=== PATIENT | male | born 1995 | race African-American/Black ===

== ENCOUNTER 2022-02-25 21:02 | Emergency (ER) | payer SELFPAY ==
[~2022-02-25] VITALS: Ht 177 cm; Wt 105.0 kg
--- NOTE | 2022-02-25 22:16 | ED Integumentary General ---
General Chief Complaint: Skin/Wound Problems Stated Complaint: LAC ON LIP Nursing Triage Note: Patient states that approximately one week ago he sustained a cut to his left lower lip that was starting to heal. Sunday he was hit in the mouth at practice and opened the wound back up. He states he was seen at the [facility] and they advised to put vasaline on the wound. He advised that he doesn't feel like the wound is improving. Source: patient History of Present Illness Date Seen by Provider: Feb 25, 2022 Time Seen by Provider: 22:00 Initial Comments Patient is a 26 yo M who presents to the ED with a lesion to this right lower lip in the area he sustained a lip laceration one week ago. He states the laceration healed but he hit it again 4 days ago reopening the wound. He states the area has healed but now he has had a bump in the area for the last few days. He was seen at the [facility] and was told to use vaseline on the affected area. He is concerned for possible infection as well as possible herpes. He denies any intraoral injury. Timing/Duration: week Allergies and Home Medications Patient Home Medication List Home Medication List Reviewed: Yes Review of Systems Review of Systems Constitutional: no symptoms reported Respiratory: no symptoms reported Cardiovascular: no symptoms reported Gastrointestinal: no symptoms reported Genitourinary: no symptoms reported Musculoskeletal: no symptoms reported Skin: no symptoms reported laceration to lip, bump to lip Past Pinvmhu-Rhgvfc-Obuaov Hx Patient Social History Tobacco Use?: No Use of E-Cig and/or Vaping dev: No Substance use?: No Alcohol Use?: No Physical Exam Vital Signs Vital Signs - First Documented 02/25/22 21:11 Temp 36.4 Pulse 77 Resp 18 B/P (MAP) 170/113 (132) Pulse Ox 100 O2 Delivery Room Air Capillary Refill : Less Than 3 Seconds General Appearance: WD/WN, no apparent distress HEENT: PERRL/EOMI, normal ENT inspection, TMs normal, pharynx normal Neck: non-tender, full range of motion, supple, normal inspection Cardiovascular: normal peripheral pulses, regular rate, rhythm, no edema, no gallop, no JVD, no murmur Respiratory: chest non-tender, lungs clear, normal breath sounds, no respiratory distress, no accessory muscle use Gastrointestinal: normal bowel sounds, non tender, soft, no organomegaly, no pulsatile mass Back: normal inspection, no CVA tenderness, no vertebral tenderness Extremities: normal range of motion, non-tender, normal inspection, no pedal edema, no calf tenderness, normal capillary refill 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 Vital signs are reassuring. Area of concern is c/w healing laceration. No obvious sign of infection. Not c/w herpes at this time. Will d/c home with recs for supportive care and follow-up with PCP for persistent symptoms. Return precautions for urgent symptomology discussed. Patient verbalized understanding. Departure Impression Primary Impression: Laceration of lower lip Qualified Codes: S01.511A - Laceration without foreign body of lip, initial encounter Disposition: 01 HOME, SELF-CARE Condition: Stable Departure-Patient Inst. Decision time for Depature: 22:15 Referrals: NO,LOCAL PHYSICIAN (PCP/Family) Primary Care Physician Patient Instructions: Wound Care (DC) Scripts Bacitracin Zinc/Polymyxin B (Double Antibiotic Oint Pkt) 500 Unit-10,000 Unit/Gram Oint.pack 1 EACH TP BID for 5 Days, #10 EA Prov: DAMION URBINA APRN 02/25/22 DAMION URBINA APRN Feb 25, 2022 22:16
[2022-02-25] MEDS ORDERED: BACI1OIN7 TP (22:19)
[2022-02-25 22:26] VITALS: BP 162/119
== END 2022-02-25 22:26 | disposition home or self-care (01) ==
LOC: ER 21:06
DX: S01.511A Laceration without foreign body of lip, initial encounter (principal); W22.8XXA Striking against or struck by other objects, initial encounter
CPT/HCPCS: 99281